=== PATIENT | female | born 1990 | race Caucasian/White ===

== ENCOUNTER 2023-08-04 09:55 | Emergency (ER) | payer OTHER ==
[~2023-08-04] VITALS: Ht 167.6 cm; Wt 90.0 kg
[2023-08-04] MEDS ORDERED: SODIUM CHLORIDE 0.9% 1,000 ML IV PRN (11:00)
[2023-08-04] MEDS ORDERED: PROCHLORPERAZINE EDISYLATE 10 MG/2 ML VIAL IV ONE (11:00)
[2023-08-04] MEDS ORDERED: PANTOPRAZOLE SODIUM 40 MG/10 ML VIAL IV ONE (11:00)
[2023-08-04 11:03] LABS: PH, VENOUS 7.487 (7.31-7.41)
[2023-08-04 11:06] LABS: BASOPHILS 0.3 % (0-2); EOSINOPHILS 0.9 % (0-6); HEMATOCRIT 45.1 % (35.0-50.0); HEMOGLOBIN 14.9 g/dL (12.0-18.0); LYMPHOCYTES 44.8 % (24-44); MCH 27.3 (27-36); MCV 82.8 fl (81-99); MONOCYTES 8.4 % (0-12); NEUTROPHILS 45.6 % (39-80); PLATELET COUNT 436 K/uL (140-440); RBC 5.44 M/ul (4.3-5.7); RDW 15.7 (10.5-15.0)
[2023-08-04] MEDS ORDERED: METOCLOPRAMIDE HCL 10 MG/2 ML SDV IV ONE (11:30)
[2023-08-04] MEDS ORDERED: HALOPERIDOL LACTATE 5 MG/ML VIAL IV ONE (11:30)
[2023-08-04 11:35] LABS: ALBUMIN 3.5 g/dL (3.4-5.0); ALBUMIN/GLOBULIN RATIO 0.85 (1.1-2.4); ALKALINE PHOSPHATASE 130 U/L (46-116); ALT (SGPT) 95 U/L (14-59); ANION GAP 21.1 (7-21); AST (SGOT) 89 U/L (15-37); BILIRUBIN, TOTAL 0.3 ng/dL (0.2-1.0); BUN/CREATININE RATIO 5.55 (6.0-28.6); CALCIUM 8.1 mg/dL (8.5-10.1); CARBON DIOXIDE 21 mmol/L (21-32); CHLORIDE 102 mmol/L (98-107); GLOMERULAR FILTRATION RATE,EST 88 mL/min (>60); POTASSIUM 3.1 mmol/L (3.5-5.1); PROTEIN, TOTAL 7.6 g/dL (6.4-8.2); UREA NITROGEN 5 mg/dL (7-18)
[2023-08-04 11:36] LABS: ALCOHOL, MEDICAL 381 ng/dL (<3)
[2023-08-04 12:49] LABS: AMPHETAMINES, URINE NEGATIVE (NEGATIVE); BARBITURATES, URINE NEGATIVE (NEGATIVE); BENZODIAZEPINE, URINE NEGATIVE (NEGATIVE); BUPRENORPHINE, URINE NEGATIVE (NEGATIVE); CANNABINOID, URINE POSITIVE (NEGATIVE); COCAINE, URINE NEGATIVE (NEGATIVE); ECSTASY, URINE NEGATIVE (NEGATIVE); FENTANYL, URINE NEGATIVE (NEGATIVE); METHADONE, URINE NEGATIVE (NEGATIVE); OPIATES, URINE NEGATIVE (NEGATIVE); OXYCODONE, URINE NEGATIVE (NEGATIVE); PHENCYCLIDINE, URINE NEGATIVE (NEGATIVE)
[2023-08-04] MEDS ORDERED: POTASSIUM CHLORIDE 10 MEQ/100 ML BAG IV SCH (13:45)
[2023-08-04] MEDS ORDERED: POTASSIUM CHLORIDE 20 MEQ,LIDOCAINE HCL 1% 20 MG in DEXTROSE 5% 250 ML IV ONE (14:00)
[2023-08-04] MEDS ORDERED: droPERidol 5 MG/2 ML VIAL IV ONE (18:00)
[2023-08-04] MEDS ORDERED: COMPAZINE25 MG PR (18:38)
[2023-08-04] MEDS ORDERED: ONDANSETRON ODT8 MG PO (18:38)
[2023-08-04] MEDS ORDERED: LORazepam 1 MG TAB PO ONE (18:45)
[2023-08-04 19:10] VITALS: BP 116/84
--- NOTE | 2023-08-04 19:25 | EKG ---
[facility] [address] [facility] [place], [place] [address] Signed Sinus tachycardia Nonspecific ST abnormality Abnormal ECG No previous ECGs available Confirmed by Jasper Enamorado ([id number]) on 08/04/2023 7:25:49 PM Electronically Signed By: JASPER ENAMORADO MD 08/04/231924 PATIENT NAME: ALO DUVALL Electrocardiogram DATE OF : 89 PHYSICIAN: JASPER ENAMORADO MD REPORT #: [id number] REPORT IS CONFIDENTIAL AND NOT TO BE RELEASED WITHOUT AUTHORIZATION
--- OUTSIDE RECORDS SUMMARY | 2023-08-04 19:30 | XMS ---
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 PHONE: [phone] [facility], Clinic/Center: Dental Current INCCely PHONE: [facility] Current PHONE: Unknown Duyen Ramirez Current PHONE: [phone] DUTCH JUDD [employer]eter [employer] Current [facility] TEAM PHONE: [phone] Priscila has no Care Guidelines for this patient. EAngy VISIT COUNT (12 MO.) 2 Eric Fu[facility] 1 [facility] TOTAL 4 NOTE: Visits indicate total known visits. ED/UCC VISIT TRACKING (12 MO.) 08/04/2023 09:55 SALOME [facility] [place] TYPE: Emergency COMPLAINT: - ABDOMINAL PAIN [facility] DIAGNOSES: - Alcohol Problem - AMBO TO TRIAGE 08/02/2023 14:42 Eric MARTINEZ [place] TYPE: Emergency DIAGNOSES: - Procedure and treatment not carried out due to patient leaving prior to being seen by health care provider - Alcohol intoxication - Drug / Alcohol Assessment - intoxication 07/30/2023 01:45 Eric Fuentes [facility] TYPE: Emergency DIAGNOSES: - Nausea with vomiting, unspecified - Other chronic pain - Unspecified abdominal pain - Abdominal pain - Alcohol Problem INPATIENT VISIT TRACKING (12 MO.) No inpatient visits to display in this time frame [email or web address]
== END 2023-08-04 19:10 | disposition home or self-care (01) ==
LOC: ED 09:55
PROVIDERS: Emergency Medicine
DX: F10.129 Alcohol abuse with intoxication, unspecified (principal); E87.6 Hypokalemia; Y90.8 Blood alcohol level of 240 mg/100 ml or more
CPT/HCPCS: 36415; 51701; 80053; 80307; 82803; 83605; 83690; 84702; 85025; 93005; 93010; 99284-25; A9270-GY; C9113; G0480; J0780; J1630; J1790; J2765; J3480; J3490; J7030; J7060